=== PATIENT | male | born 1980 | race Caucasian/White ===

== ENCOUNTER 2022-07-29 10:31 | Outpatient (RCR) | payer OTHER ==
[~2022-07-29 10:31] MED LIST: NO HOME MEDICATIONS; TAMIFLU 75MG75 MG PO
== END 2022-08-08 19:39 | disposition home or self-care (01) ==
LOC: WSOH 10:31
DX: M19.012 Primary osteoarthritis, left shoulder (principal); S46.012A Strain of muscle(s) and tendon(s) of the rotator cuff of left shoulder, initial encounter; Y99.0 Civilian activity done for income or pay